=== PATIENT | female | born 1985 | race Caucasian/White ===

== ENCOUNTER → 2022-04-10 | Outpatient (CLI) | payer BC, OTHER ==
--- NOTE | 2022-04-10 16:58 | Diagnostic Imaging Report ---
PROCEDURE: US Non-ob pelvis comp/trans. TECHNIQUE: Multiple realtime grayscale images were obtained of the pelvis in various projections endovaginally. Transabdominal imaging was also performed. INDICATION: IUD check. COMPARISON: None Available FINDINGS: Transabdominal: The uterus and adnexa have a unremarkable transabdominal appearance. Transvaginal images were obtained for additional characterization. Transvaginal: The uterus is anteverted and measures 6.9 x 3.1 x 3.8 cm. The endometrial stripe measures 0.8 cm and has a normal appearance. The IUD is in place. Nabothian cyst is seen. The right ovary is well visualized measuring 1.9 x 1.6 x 2.4 cm and demonstrating normal color Doppler flow. The left ovary is well-visualized measuring 3.8 x 2.5 x 2.4 cm with normal color Doppler flow. No adnexal masses. A small amount of free fluid is seen in the pelvis. IMPRESSION: 1. IUD in place with somewhat low termination in the lower uterine segment. 2. No adnexal mass or torsion. Small amount of physiologic free fluid is seen in the pelvis. 3. Nabothian cyst. Dictated by: Dictated on workstation # [id number]
== END ==
LOC: RAD 16:00
PROVIDERS: ATTEND Family Medicine
DX: Z30.431 Encounter for routine checking of intrauterine contraceptive device (principal); N83.209 Unspecified ovarian cyst, unspecified side
CPT/HCPCS: 76830; 76856